=== PATIENT | female | born 1950 | race Two or more races ===

== ENCOUNTER 2024-10-24 17:47 | Emergency (ER) | payer OTHER ==
[~2024-10-24 17:47] MED LIST: LOSARTAN POTASS50 MG; TRAMADOL HCL50 MG
[2024-10-24] MEDS ORDERED: KETOROLAC TROMETHAMINE 30 MG VIAL IM STA (19:02)
[2024-10-24] MEDS ORDERED: KETOROLAC TROMETHAMINE 30 MG VIAL ONE (19:24)
== END 2024-10-24 20:23 | disposition home or self-care (01) ==
LOC: ER 17:50
DX: M79.605 Pain in left leg (principal); I10 Essential (primary) hypertension; Z88.8 Allergy status to other drugs, medicaments and biological substances